=== PATIENT | male | born 1985 | race African-American/Black ===

== ENCOUNTER 2019-01-27 12:27 | Emergency (ER) | payer OTHER ==
[~2019-01-27] VITALS: Ht 177.8 cm; Wt 99.8 kg
[2019-01-27 14:15] LABS: HEMATOCRIT 44.7 % (42.0-52.0); HEMOGLOBIN 15.7 gm/dL (14.0-18.0); MCH 31.6 pg (26.0-34.0); MCV 90.1 fL (80.0-100.0); PLATELET COUNT 225 thou/uL (150-400); RBC 4.97 mil/uL (4.50-6.00); RDW 13.8 % (10.5-14.5); WBC 9.8 thou/uL (4.0-11.0)
[2019-01-27 14:24] LABS: CALCIUM 9.3 mg/dL (8.5-10.1); POTASSIUM 4.3 mmol/L (3.5-5.1)
[2019-01-27 14:29] LABS: ALBUMIN 4.4 g/dL (3.4-5.0); TOTAL BILIRUBIN 0.8 mg/dL (<0.1-1.0); TOTAL PROTEIN 8.1 g/dL (6.4-8.2)
[2019-01-27 14:41] LABS: ABSOLUTE NEUTROPHILS 7.8 thou/uL (1.4-8.2); PLATELET ESTIMATE NORMAL
[2019-01-27] MEDS ORDERED: ONDANSETRON HCL4 M2 PO (14:59)
[2019-01-27] MEDS ORDERED: CYCLOBENZAPRINE5 MG PO (14:59)
[2019-01-27 15:05] VITALS: BP 145/84
== END 2019-01-27 15:05 | disposition home or self-care (01) ==
LOC: ER 12:27
PROVIDERS: Physician Assistant
DX: M54.6 Pain in thoracic spine (principal); R11.2 Nausea with vomiting, unspecified; V89.2XXA Person injured in unspecified motor-vehicle accident, traffic, initial encounter; Y93.89 Activity, other specified; Y92.89 Other specified places as the place of occurrence of the external cause; Y99.8 Other external cause status